=== PATIENT | female | born 1995 | race Two or more races ===

== ENCOUNTER 2023-07-11 13:14 | Emergency (ER) | payer BC ==
[~2023-07-11] VITALS: Ht 175.3 cm; Wt 125.0 kg
[~2023-07-11 13:14] MED LIST: BUPR-50 PO; CEPH-558 PO; GABA-1201 PO; HYDR30CR3 TP; METR500 PO; PROP10TA73 PO; TRAZ-252 PO; VENL-67 PO
[2023-07-11 13:57] LABS: BASOPHILS % (AUTO) 0.9 % (0.0-2.0); EOSINOPHILS % (AUTO) 8.1 % (1.0-6.0); HEMOGLOBIN 13.5 g/dL (12.0-16.0); LYMPHOCYTES # (AUTO) 2.4 K/uL (1.0-4.8); LYMPHOCYTES % (AUTO) 29.3 % (22.0-44.0); MEAN CORPUSCULAR HEMOGLOBIN 31.5 pg (26.0-34.0); MEAN CORPUSCULAR HGB CONC 33.8 G/dL (31.0-37.0); MEAN CORPUSCULAR VOLUME 93 fL (80-100); MONOCYTES # (AUTO) 0.6 K/uL (0.1-1.0); MONOCYTES % (AUTO) 6.7 % (2.0-9.0); NEUTROPHILS # (AUTO) 4.6 K/uL (1.8-7.7); PLATELET COUNT (AUTO) 431 K/uL (150-450); RED CELL DISTRIBUTION WIDTH 13.8 % (11.5-14.5); WHITE BLOOD COUNT (AUTO) 8.3 K/uL (4.5-11.0)
[2023-07-11 14:06] LABS: ANION GAP 9 mmol/L (8-16); CALCIUM, TOTAL 8.6 mg/dL (8.8-10.5); CARBON DIOXIDE 26 mmol/L (22-29); CHLORIDE 103 mmol/L (98-107); CREATININE 0.99 mg/dL (0.60-1.30); GLOMERULAR FILTR. RATE CALC > 60 mL/min (>60); GLUCOSE,RANDOM 131 mg/dL (70-110); POTASSIUM 3.8 mmol/L (3.5-5.1); SODIUM SERUM 138 mmol/L (136-145); UREA NITROGEN, BLOOD 14 mg/dL (7-18)
[2023-07-11 14:19] LABS: ALANINE AMINOTRANSFERASE 34 U/L (12-78); ALBUMIN 3.6 g/dL (3.4-5.0); ALKALINE PHOSPHATASE 71 U/L (46-116); ASPARTATE AMINOTRANSFERASE 23 U/L (15-37); BILIRUBIN,TOTAL 0.5 mg/dL (0.1-1.0); HCG,QUANTITATIVE < 1 mIU/mL (0-6); TOTAL PROTEIN, SERUM 7.1 g/dL (6.4-8.2)
[2023-07-11] MEDS: SODIUM CHLORIDE 0.9% 1,000 ML IV ONE (14:58)
[2023-07-11 15:00] VITALS: TEMP 98.2
[2023-07-11] MEDS ORDERED: MEDR5TAB5 PO (15:20)
[2023-07-11] MEDS: KETOROLAC TROMETHAMINE 30 MG/ML VIAL IVP ONE (15:32)
[2023-07-11 15:35] VITALS: BP 109/77; PULSE 78; RESP 16
== END 2023-07-11 15:41 | disposition home or self-care (01) ==
LOC: EMS 13:18
DX: N93.8 Other specified abnormal uterine and vaginal bleeding (principal); F41.9 Anxiety disorder, unspecified; F32.A Depression, unspecified
CPT/HCPCS: 99285; 96374; 76830; 76856; 96361; 80053; 84702; 85025; 86850; 86900; 86901; 36415; J1885; J7030

== ENCOUNTER 2024-12-08 03:44 | Emergency (ER) | payer BC ==
[~2024-12-08] VITALS: Ht 172.7 cm; Wt 125.0 kg
[~2024-12-08 03:44] MED LIST changes: -CEPH-558 PO; -GABA-1201 PO; -HYDR30CR3 TP; +MEDR5TAB5 PO; -METR500 PO; -TRAZ-252 PO
[2024-12-08] MEDS ORDERED: PROP80CA41 PO (04:05)
[2024-12-08 04:10] VITALS: TEMP 98.105288
[2024-12-08 06:18] LABS: PLATELET COUNT (AUTO) 432 K/uL (150-450); RED BLOOD CELL COUNT(AUTO) 4.24 MIL/uL (4.00-5.20); RED CELL DISTRIBUTION WIDTH 14.1 % (11.5-14.5); WHITE BLOOD COUNT (AUTO) 10.9 K/uL (4.5-11.0)
[2024-12-08 06:43] LABS: CALCIUM, TOTAL 8.7 mg/dL (8.8-10.5); CREATININE 0.91 mg/dL (0.60-1.30); GLOMERULAR FILTR. RATE CALC > 60 mL/min (>60); GLUCOSE,RANDOM 108 mg/dL (70-110); SODIUM SERUM 137 mmol/L (136-145); UREA NITROGEN, BLOOD 21 mg/dL (7-18)
[2024-12-08 06:58] VITALS: BP 108/64; PULSE 70; RESP 16; O2SAT 100
== END 2024-12-08 07:57 | disposition home or self-care (01) ==
LOC: EMS 03:44
DX: R10.2 Pelvic and perineal pain (principal); N93.9 Abnormal uterine and vaginal bleeding, unspecified; F32.A Depression, unspecified; F41.9 Anxiety disorder, unspecified; E06.3 Autoimmune thyroiditis; Z79.899 Other long term (current) drug therapy
CPT/HCPCS: 76830; 76856; 80048; 84702; 85025; 99284